=== PATIENT | female | born 1980 | race African-American/Black ===

== ENCOUNTER 2017-06-23 13:25 | Inpatient (IN) | payer OTHER ==
[~2017-06-23] VITALS: Ht 160 cm; Wt 25.9 kg
[2017-06-23 13:30] VITALS: BP 133/90
--- NOTE | 2017-06-23 14:17 | NUR ---
Patient to bed 6 by EMS at this time.
--- NOTE | 2017-06-23 14:18 | NUR ---
Note undone in EDM - 06/23/17 at 1442 by MED1 PT BIBA FOR EVALUATION OF SYNCOPAL EPISODE AT WORK. PT DENIES ANY LOC. HX SLE, FIBROMYALGIA. DENIES N/V/D; SKIN IS PINK/WARM/DRY; AAOX4 WITH EVEN AND STEADY GAIT; LUNGS CLEAR BL; HR EVEN AND REGULAR; PT DENIES ANY FEVER, CP, SOB, OR COUGH AT THIS TIME; PATIENT STATES PAIN OF 0/10 AT THIS TIME; PATIENT POSITIONED FOR COMFORT; HOB ELEVATED; BEDRAILS UP X2; BED DOWN. ER MADE AWARE OF PT STATUS.
--- NOTE | 2017-06-23 14:18 | NUR ---
Note undone in EDM - 06/23/17 at 1446 by MED1 PT BIBA FOR EVALUATION OF SYNCOPAL EPISODE AT WORK. PT DENIES ANY LOC. HX SLE, FIBROMYALGIA. DENIES N/V/D; SKIN IS PINK/WARM/DRY; AAOX4 WITH EVEN AND STEADY GAIT; LUNGS CLEAR BL; PT DENIES ANY FEVER, CP, SOB, OR COUGH AT THIS TIME; PATIENT STATES PAIN OF 0/10 AT THIS TIME; PATIENT POSITIONED FOR COMFORT; HOB ELEVATED; BEDRAILS UP X2; BED DOWN. ER MD MADE AWARE OF PT STATUS.
--- NOTE | 2017-06-23 14:18 | NUR ---
PT BIBA FOR EVALUATION OF SYNCOPAL EPISODE AT WORK. PT DENIES ANY LOC. HX SLE, FIBROMYALGIA. pt sts cough x 1 wk. headache 4/10 at this time. DENIES N/V/D; SKIN IS PINK/WARM/DRY; AAOX4 WITH EVEN AND STEADY GAIT; LUNGS CLEAR BL; PT DENIES ANY FEVER, CP, SOB, OR COUGH AT THIS TIME; PATIENT POSITIONED FOR COMFORT; HOB ELEVATED; BEDRAILS UP X2; BED DOWN. ER MD MADE AWARE OF PT STATUS.
[2017-06-23 16:06] LABS: BASOPHILS # (AUTO) 0.5 K/uL (0.00-0.22); EOSINOPHILS # (AUTO) 0.1 K/uL (0-0.4); HEMATOCRIT 45.7 % (36-48); HEMOGLOBIN 14.8 g/dL (12.0-16.0); LYMPHOCYTES # (AUTO) 1.6 K/uL (2.5-16.5); MEAN CORPUSCULAR HEMOGLOBIN 29 pg (27-31); MEAN CORPUSCULAR HGB CONC 32 g/dL (33-37); MEAN CORPUSCULAR VOLUME 90 fL (80-94); MONOCYTES # (AUTO) 0.7 K/uL (0.8-1.0); NEUTROPHILS # (AUTO) 6.7 K/uL (1.8-7.7); PLATELET COUNT (AUTO) 516 K/uL (140-450); RED CELL DISTRIBUTION WIDTH 12.6 % (11.6-13.7); WHITE BLOOD COUNT (AUTO) 9.6 K/uL (4.8-10.8)
[2017-06-23 16:12] LABS: APPEARANCE,URINE HAZY (CLEAR); BILIRUBIN,URINE 2+ (NEGATIVE); BLOOD, URINE TRACE-I (NEGATIVE); COLOR,URINE YELLOW (YELLOW); LEUKOCYTE ESTERASE ,URINE NEGATIVE (NEGATIVE); NITRITE, URINE NEGATIVE (NEGATIVE); UGLUCOSE NEGATIVE (NEGATIVE)
[2017-06-23 16:36] LABS: ALBUMIN 4.7 g/dL (3.4-5.0); ANION GAP 24.1 (8-16); CARBON DIOXIDE 17.6 mmol/L (21-32); CREATININE 0.9 mg/dL (0.6-1.3); TOTAL BILIRUBIN 0.7 mg/dL (0.0-1.0)
[2017-06-23 16:37] LABS: POTASSIUM 2.7 mmol/L (3.5-5.1)
--- NOTE | 2017-06-23 16:43 | NUR ---
Patient being REevaluated by DR WELCH at bedside.
[2017-06-23] MEDS ORDERED: MAG SULF 2000 MG/WATER PREMIX 50 ML IV ONE (16:45)
[2017-06-23] MEDS ORDERED: KCL 20 MEQ/WATER INJ PREMIX 100 ML IV ONE (16:45)
[2017-06-23] MEDS ORDERED: NACL 0.9% 1,000 ML IV ONE (16:45)
[2017-06-23] MEDS ORDERED: POTASSIUM CHLORIDE 20% 40 MEQ/15 ML UDC PO ONE (16:45)
--- NOTE | 2017-06-23 16:45 | NUR ---
PT HR IRREGULAR BETWEEN 60-[address]. [address] WELCH.
[2017-06-23 16:46] LABS: RBC,URINE 0-5 /HPF (0-5)
--- NOTE | 2017-06-23 17:00 | NUR ---
X RAY AT BEDSIDE.
[2017-06-23] MEDS ORDERED: ONDANSETRON 4 MG/2 ML VIAL IVP PRN (17:50)
[2017-06-23] MEDS ORDERED: ACETAMINOPHEN 325 MG TAB PO PRN (17:50)
[2017-06-23] MEDS ORDERED: TEMAZEPAM 15 MG CAP PO PRN (17:50)
[2017-06-23] MEDS: POTASSIUM CHL 20 MEQ/NACL 0.9% 1,000 ML IV SCH (17:50)
[2017-06-23] MEDS ORDERED: POTASSIUM CHLORIDE 10 MEQ TABER PO SCH (18:00)
--- NOTE | 2017-06-23 18:41 | NUR ---
Patient will be admitted to care of DR STRINGER. Admited to TELE. Will go to [id number]. Belongings list completed. Report to SUDHIR.
--- NOTE | 2017-06-23 18:41 | NUR ---
GAVE REPORT TO ZAINAB PEGUERO.
[2017-06-23 19:00] VITALS: BP 136/69
--- NOTE | 2017-06-23 19:00 | NUR ---
RECEIVED PT ON UNIT VIA MAYANK, PT IS A/OX4, AMBULATORY, PT HAS IV ON HER LEFT IJ AND IV ON HER LT HAND, SKIN IS INTACT, NO S/S OF RESPIRATORY DISTRESS OR DISCOMFORT NOTED, ORIENTED PT TO ROOM, DISCUSSED PLAN OF CARE WITH PT, PT VERBALIZED UNDERSTANDING, SAFETY/FALL PRECAUTIONS ARE IN PLACE, CALL LIGHT WITHIN REACH, WILL CONTINUE TO MONITOR.
--- NOTE | 2017-06-23 19:15 | NUR ---
ENDORSED PT TO LABEL SEWER NURSE FOR CONTINUITY OF CARE, PT STABLE AT THIS TIME.
--- NOTE | 2017-06-23 19:16 | NUR ---
RECEIVED REPORT FROM AM NURSE. PT RESTING IN BED, AOX4, AMBULATORY, ABLE TO VERBALIZE NEEDS. PT C/O SLIGHT NAUSEA AT THIS TIME, DENIES NAUSEA MEDICATION. PT DENIES CHEST PAIN, SOB OR S/S OF ACUTE DISTRESS. PT REPORTS FEELING GENERALIZED WEAKNESS. FIELD OPERATIONS FARM MANAGER IN PLACE. BOTH IV ACCESS TO LEFT IJ AND LEFT HAND ASYMPTOMATIC, PATENT AND INTACT, INFUSING WELL. DISCUSSED AND REVIEWED PLAN OF CARE WITH PT. PT VERBALIZED UNDERSTANDING. ALL NEEDS MET. SAFETY MEASURES ENSURED. CALL LIGHT WITHIN REACH. WILL CONTINUE TO MONITOR.
[2017-06-23 20:00] VITALS: BP 130/77
--- NOTE | 2017-06-23 20:44 | NUR ---
PT C/O INSOMNIA, ADMINISTERED TEMAZEPAM ORDERED. ADMINISTERED DUE MEDS WITH EDUCATION. PT VERBALIZED UNDERSTANDING, TOLERATED MEDS WELL.
[2017-06-23] MEDS: KCL 20 MEQ/WATER INJ PREMIX 100 ML IV SCH (21:57)
--- NOTE | 2017-06-23 22:20 | NUR ---
CALLED DR FELIX , SASH STICKER FOR DR STRINGER. DISCUSSED PT DX DEHYDRATION, HYPOKALEMIA AND HX OF LUPUS AND FIBROMYALGIA. MADE MD AWARE OF PT C/O PAIN AND THAT PT STATED TO BE TAKING FENTANYL PATCH EVERY 3 DAYS BUT DOES NOT KNOW THE DOSE. ORDERS RECEIVED FOR MORPHINE 4MG IVP Q4H PRN. ORDERS PENDING, WILL CARRY OUT. ALSO MADE MD AWARE OF PT HR AROUND 118-122, AND IS NOW HR 104. STATED THAT IS FINE.
[2017-06-23] MEDS: MORPHINE SULFATE 4 MG/ML SYR IVP PRN (22:38)
--- NOTE | 2017-06-23 22:40 | NUR ---
PT C/O PAIN. SEE PAIN ASSESSMENT. ADMINISTERED PAIN MED ORDERED. ALL NEEDS MET. SAFETY MEASURES ENSURED. CALL LIGHT WITHIN REACH.
[2017-06-24] VITALS: BP 119/84
[2017-06-24] MEDS: POTASSIUM CHL 20 MEQ/NACL 0.9% 1,000 ML IV SCH ×2 (01:07→04:30)
[2017-06-24] MEDS: KCL 20 MEQ/WATER INJ PREMIX 100 ML IV SCH (01:26)
[2017-06-24 04:00] VITALS: BP 116/71
--- NOTE | 2017-06-24 04:30 | NUR ---
PT SLEEPING COMFORTABLY. IVF INFUSING WELL. ALL NEEDS MET. SAFETY MEASURES ENSURED. CALL LIGHT WITHIN REACH. WILL CONTINUE TO MONITOR.
[2017-06-24 06:48] LABS: BASOPHILS # (AUTO) 0.3 K/uL (0.00-0.22); BASOPHILS % (AUTO) 3.8 % (0.0-2.0); EOSINOPHILS # (AUTO) 0.2 K/uL (0-0.4); EOSINOPHILS % (AUTO) 2.6 % (0.0-4.0); HEMATOCRIT 41.4 % (36-48); HEMOGLOBIN 13.4 g/dL (12.0-16.0); LYMPHOCYTES # (AUTO) 2.6 K/uL (2.5-16.5); LYMPHOCYTES % (AUTO) 33.6 % (20.5-51.1); MEAN CORPUSCULAR HEMOGLOBIN 30 pg (27-31); MEAN CORPUSCULAR HGB CONC 32 g/dL (33-37); MEAN CORPUSCULAR VOLUME 91 fL (80-94); MONOCYTES # (AUTO) 0.8 K/uL (0.8-1.0); MONOCYTES % (AUTO) 10.8 % (1.7-9.3); NEUTROPHILS # (AUTO) 3.8 K/uL (1.8-7.7); NEUTROPHILS % (AUTO) 49.2 % (42.2-75.2); PLATELET COUNT (AUTO) 423 K/uL (140-450); RED BLOOD CELL COUNT(AUTO) 4.53 MIL/uL (4.20-5.40); RED CELL DISTRIBUTION WIDTH 12.8 % (11.6-13.7); WHITE BLOOD COUNT (AUTO) 7.7 K/uL (4.8-10.8)
[2017-06-24 07:03] LABS: CREATININE 0.6 mg/dL (0.6-1.3)
[2017-06-24 07:11] LABS: POTASSIUM 5.2 mmol/L (3.5-5.1)
[2017-06-24 07:12] LABS: ANION GAP 19.4 (8-16); CARBON DIOXIDE 16.8 mmol/L (21-32)
--- NOTE | 2017-06-24 07:15 | NUR ---
ENDORSED PLAN OF CARE TO AM NURSE. CONDITION STABLE.
--- NOTE | 2017-06-24 07:20 | NUR ---
RECEIVED REPORT FROM PM NURSE FOR CONTINUITY OF CARE. PT AAO. PT DENIES PAIN OR DISCOMFORT. RESP EVEN AND UNLABORED. IV INTACT, NO REDNESS OR SWELLING NOTED. NO S/S OF DISTRESS, RESTLESSNESS OR SOB. SKIN IS WARM AND INTACT. DISCUSSED PLAN OF CARE WITH PATIENT. PT VERBALIZED UNDERSTANDING. SAFETY MEASURES IN PLACED. SIDE RAILS UP, BED LOCKED IN LOW POSITION, CALL LIGHT WITHIN REACH. WILL CONTINUE TO MONITOR.
[2017-06-24 08:00] VITALS: BP 116/75
[2017-06-24] MEDS: MORPHINE SULFATE 4 MG/ML SYR IVP PRN (08:51)
--- NOTE | 2017-06-24 09:38 | NUR ---
PT SLEEPING IN BED QUIETLY BUT EASILY AROUSABLE. RESP EVEN AND UNLABORED. NO S/S OF DISTRESS, SOB, OR RESTLESSNESS. SAFETY MEASURES IN PLACED. WILL CONTINUE TO MONITOR.
[2017-06-24 12:00] VITALS: BP 107/69
[2017-06-24] MEDS ORDERED: NACL 0.9% 1,000 ML IV SCH (12:05)
[2017-06-24] MEDS ORDERED: CYANOCOBALAMIN 1000 MCG/ML VIAL IM SCH (13:25)
--- NOTE | 2017-06-24 13:25 | NUR ---
DR GEIGER AT BEDSIDE.
--- NOTE | 2017-06-24 14:10 | NUR ---
PT AMBULATED TO THE RESTROOM WITH STEADY GAIT. DENIES PAIN OF DISCOMFORT. NO S/S OF RESTLESSNESS, SOB, OR DISTRESS. WILL CONTINUE TO MONITOR.
[2017-06-24 15:30] VITALS: BP 118/82
--- NOTE | 2017-06-24 15:30 | NUR ---
DISCHARGED TEACHING GIVEN TO PT. PT ENCOURAGE TO CONTINUE ORAL INTAKE OF FLUID. PT VERBALIZED UNDERSTANDING. IV DC'ED X 2, CATH TIP INTACT, NO BLEEDING NOTED. NO VOMITING TODAY, TOLERATED PO. ARMBAND REMOVED. NO S/S OF DISTRESS, SOB, RESTLESSNESS. GETS IN AND OUT OF BED, AMBULATED WITH STEADY GAIT. AWAITING FOR MOTHER TO PICK HER UP.
--- NOTE | 2017-06-24 16:00 | NUR ---
ESCORTED PT TO THE LOBBY VIA WHEELCHAIR. PT IS WITH HER MOTHER. PT DENIES PAIN, SOB, DISCOMFORT. NO S/S OF DISTRESS. PT IS STABLE.
--- NOTE | 2017-06-27 08:08 | NUR ---
RETRO ER REPORT, H&P AND DISCHARGE SUMMARY FAXED TO [facility] [phone] PHONE BRYANNA [phone]
== END 2017-06-24 16:20 | disposition home or self-care (01) | DRG 204 ==
LOC: MED 13:25 → MTU 17:45
PROVIDERS: ADMIT Internal Medicine Pulmonary Disease; ATTEND Internal Medicine Pulmonary Disease
DX: R55 Syncope and collapse (principal); M32.9 Systemic lupus erythematosus, unspecified; E86.0 Dehydration; E87.6 Hypokalemia; F12.90 Cannabis use, unspecified, uncomplicated; M79.7 Fibromyalgia; R11.2 Nausea with vomiting, unspecified
CPT/HCPCS: 36415; 71010; 80048; 80053; 81001; 81025; 82550; 83735; 84484; 85025; 87081; 87086; 93005; 99285; J2270; J3420; J3475; J3480; J7030